=== PATIENT | female | born 1985 | race African-American/Black ===

== ENCOUNTER 2017-06-14 16:19 | Observation (INO) | payer MEDICAID ==
[~2017-06-14] VITALS: Ht 175.3 cm; Wt 128.8 kg
[2017-06-14] MEDS ORDERED: PREN1TAB87 PO (16:35)
[2017-06-14] MEDS ORDERED: FOLI-43 PO (16:35)
[2017-06-15] MEDS ORDERED: ACETAMINOPHEN 325MG TABLET PO SCH (01:00)
[2017-06-15] MEDS: ACETAMINOPHEN 325MG TABLET PO SCH ×2 (01:38→01:39)
[2017-06-15 02:49] LABS: BASOPHILS % 0.5 % (0.0-2.0); HEMATOCRIT. 34.4 % (36.0-48.0); HEMOGLOBIN. 11.6 g/dL (12.0-16.0); LYMPHOCYTES % 24.5 % (20.0-50.0); MEAN CORPUSCULAR HEMOGLOBIN 30.6 pg (28.0-32.0); MEAN CORPUSCULAR VOLUME 90.6 fL (81.0-99.0); MEAN PLATELET VOLUME 9.2 fl (7.4-10.4); MONOCYTES % 5.4 % (2.0-8.0); NEUTROPHILS % 67.6 % (40.0-76.0); PLATELET 200 x1000/uL (130-400); RED CELL DISTRIBUTION WIDTH 13.1 % (11.6-14.6)
[2017-06-15 02:53] LABS: CHLORIDE 106 mEq/L (98-107)
[2017-06-15] MEDS ORDERED: ONDANSETRON 4MG ODT PO NR (14:45)
[2017-06-15] MEDS ORDERED: ACETAMINOPHEN 325MG TABLET PO PRN (14:45)
== END 2017-06-16 14:00 | disposition home or self-care (01) ==
LOC: L&D 16:19
PROVIDERS: ADMIT Obstetrics & Gynecology; ATTEND Obstetrics & Gynecology
DX: O36.8130 Decreased fetal movements, third trimester, not applicable or unspecified (principal); O35.9XX0 Maternal care for (suspected) fetal abnormality and damage, unspecified, not applicable or unspecified; Z91.81 History of falling; Z3A.29 29 weeks gestation of pregnancy
CPT/HCPCS: 36415; 76815; 76818; 80053; 85025; 86850; 86900; 86901; 99281; G0378; Q0162